=== PATIENT | female | born 2005 | race African-American/Black ===

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

== ENCOUNTER → 2023-05-14 | Outpatient (CLI) | payer MEDICAID ==
[2023-05-14 11:19] LABS: Basophils # (auto) 0 10 ^3/uL (0-0.2); Basophils % (auto) 0.2 % (0.0-2.0); Eosinophils # (auto) 0.1 10 ^3/uL (0-0.8); Eosinophils % (auto) 0.7 % (0.0-7.0); Hematocrit 35.9 % (36.0-46.0); Lymphocytes # (auto) 1.9 10 ^3/uL (0.4-5.4); Lymphocytes % (auto) 25.2 % (10.0-50.0); Mean Corpuscular Hemoglobin 28.6 pg (28.0-32.0); Mean Corpuscular Hgb Conc. 33.5 g/dL (32.0-36.0); Mean Corpuscular Volume 85.6 fL (80.0-100.0); Monocytes # (auto) 0.3 10 ^3/uL (0-1.3); Monocytes % (auto) 4.4 % (0.0-12.0); Neutrophils # (auto) 5.2 10 ^3/uL (1.6-8.6); Neutrophils % (auto) 69.5 % (37.0-80.0); Red Blood Cells 4.19 10^6/uL (4.0-5.20); Red Cell Distribution Width 14.8 % (11.8-14.3); White Blood Cell 7.4 10^3/uL (4.4-10.8)
[2023-05-14 13:10] LABS: Amphetamine Screen, Urine Neg (NEGATIVE)
[2023-05-14 13:11] LABS: Barbiturate Scree,Urine Neg (NEGATIVE); Benzodiazephine Screen, Urine Neg (NEGATIVE); Cannabinoid Screen, Urine Neg (NEGATIVE); Cocaine Screen, Urine Neg (NEGATIVE); Opiate Scree,Urine Neg (NEGATIVE); Phencyclidine Screen, Urine Neg (NEGATIVE)
[2023-05-15 06:07] LABS: RPR Non Reactive (Non Reactive)
[2023-05-15 09:06] LABS: Varicella Zoster IgG Antibody <135 index (Immune >165)
[2023-05-16 08:05] LABS: Chlamydia Trachomatis, NAA Negative (Negative); Neisseria gonorrhoeae, NAA Negative (Negative)
[2023-05-16 16:05] LABS: QuantiFERON-TB Gold Plus Negative (Negative)
== END | disposition home or self-care (01) ==
LOC: LAB 10:19
PROVIDERS: ATTEND Obstetrics & Gynecology
DX: Z34.00 Encounter for supervision of normal first pregnancy, unspecified trimester (principal); Z31.430 Encounter of female for testing for genetic disease carrier status for procreative management; Z36.0 Encounter for antenatal screening for chromosomal anomalies; N39.0 Urinary tract infection, site not specified; Z3A.00 Weeks of gestation of pregnancy not specified
CPT/HCPCS: 36415; 80307; 83036; 84702; 85025; 86592; 86703; 86762; 86787; 86850; 86900; 86901; 87086; 87340

== ENCOUNTER → 2023-08-06 | Outpatient (CLI) | payer MEDICAID ==
[2023-08-06 09:26] LABS: Alanine Aminotransferase 18 U/L (7-40); Albumin 4.1 g/dL (3.2-4.8); Alkaline Phosphatase 122 U/L (46-116); Anion Gap 10 (5-15); Aspartate Aminotransferase 13 U/L (13-40); Calcium 9.6 mg/dL (8.5-10.1); Carbon Dioxide 22 mmol/L (20-30); Chloride 107 mmol/L (98-107); Cholesterol 191 mg/dL (< 200); Glucose 114 mg/dL (74-106); HDL Cholesterol 67 mg/dL (40-59); LDL Cholesterol 104 mg/dL (< 100); Potassium 3.8 mmol/L (3.5-5.1); Sodium 139 mmol/L (136-145); Triglycerides 235 mg/dL (< 150)
[2023-08-06 09:27] LABS: Bilirubin, Total 0.4 mg/dL (0.2-1.0); Total Protein 6.8 g/dL (5.7-8.2)
[2023-08-06 09:30] LABS: BUN/Creatinine Ratio 9.4 (10.0-20.0); Blood Urea Nitrogen < 5 mg/dL (9-23)
== END | disposition home or self-care (01) ==
LOC: LAB 08:15
PROVIDERS: ATTEND Obstetrics & Gynecology
DX: Z34.00 Encounter for supervision of normal first pregnancy, unspecified trimester (principal); Z3A.00 Weeks of gestation of pregnancy not specified
CPT/HCPCS: 36415; 80053; 80061; 82951; 84436; 84443

== ENCOUNTER 2023-09-09 10:06 | Observation (INO) | payer MEDICAID | END 2023-09-09 11:55 | disposition home or self-care (01) | LOC: UNDOADMOB 10:06 → LDRP 10:06 | PROVIDERS: ADMIT Obstetrics & Gynecology; ATTEND Obstetrics & Gynecology | DX: O24.419 Gestational diabetes mellitus in pregnancy, unspecified control (principal); Z3A.36 36 weeks gestation of pregnancy; Z79.899 Other long term (current) drug therapy | CPT/HCPCS: 59025; 76818; 81002; 82948; 82962; 87086; G0378 ==

== ENCOUNTER 2023-09-16 10:00 | Observation (INO) | payer MEDICAID | END 2023-09-16 11:19 | disposition home or self-care (01) | LOC: LDRP 10:00 | PROVIDERS: ADMIT Obstetrics & Gynecology; ATTEND Obstetrics & Gynecology | DX: O24.419 Gestational diabetes mellitus in pregnancy, unspecified control (principal); Z3A.37 37 weeks gestation of pregnancy | CPT/HCPCS: 59025; 76818; 81002; 82948; 94760; G0378 ==

== ENCOUNTER 2023-09-23 10:00 | Observation (INO) | payer MEDICAID ==
[2023-09-23] MEDS ORDERED: PREN1TAB71 OR (10:15)
== END 2023-09-23 11:57 | disposition home or self-care (01) ==
LOC: LDRP 10:00 → UNDOADMOB 10:00 → LDRP 10:12 → UNDODISOB 11:57
PROVIDERS: ADMIT Obstetrics & Gynecology; ATTEND Obstetrics & Gynecology
DX: O24.419 Gestational diabetes mellitus in pregnancy, unspecified control (principal); O26.893 Other specified pregnancy related conditions, third trimester; R10.9 Unspecified abdominal pain; Z3A.38 38 weeks gestation of pregnancy
CPT/HCPCS: 59025; 76818; 81002; 82948; 94760; G0378

== ENCOUNTER 2023-09-27 12:51 | Observation (INO) | payer MEDICAID ==
[~2023-09-27 12:51] MED LIST: PREN1TAB71 OR
[2023-09-29] MEDS ORDERED: HYDR-4902 PO (17:07)
[2023-09-29] MEDS ORDERED: CEPH500T PO (17:07)
[2023-09-29] MEDS ORDERED: IBUP-1455 PO (17:07)
[2023-10-02] MEDS ORDERED: PREN1TAB71 PO (01:09)
[2023-10-02] MEDS ORDERED: DOCU240C23 PO (01:09)
[2023-10-02] MEDS ORDERED: FERR30CA PO (01:09)
== END 2023-09-27 14:33 | disposition home or self-care (01) ==
LOC: LDRP 12:51
PROVIDERS: ADMIT Obstetrics & Gynecology; ATTEND Obstetrics & Gynecology
DX: O62.9 Abnormality of forces of labor, unspecified (principal); O24.419 Gestational diabetes mellitus in pregnancy, unspecified control; O26.853 Spotting complicating pregnancy, third trimester; Z3A.39 39 weeks gestation of pregnancy
CPT/HCPCS: 59025; 81002; 82948; 82962

== ENCOUNTER 2023-10-18 16:04 | Emergency (ER) | payer MEDICAID ==
[~2023-10-18] VITALS: Ht 160 cm; Wt 118.2 kg
[~2023-10-18 16:04] MED LIST changes: +CEPH500T PO; +DOCU240C23 PO; +FERR30CA PO; +HYDR-4902 PO; +IBUP-1455 PO; -PREN1TAB71 OR; +PREN1TAB71 PO
[2023-10-18] MEDS ORDERED: ACET500T58 PO (17:35)
[2023-10-18] MEDS ORDERED: CEPH500C PO (17:35)
[2023-10-18] MEDS: CEPHALEXIN 250 MG CAP PO ONE (17:51)
[2023-10-18 17:56] VITALS: BP 128/57; PULSE 68; RESP 17; TEMP 98.4; O2SAT 96
== END 2023-10-18 17:58 | disposition home or self-care (01) ==
LOC: ER 16:04
DX: O90.0 Disruption of cesarean delivery wound (principal); Z79.1 Long term (current) use of non-steroidal anti-inflammatories (NSAID); Z79.899 Other long term (current) drug therapy

== ENCOUNTER → 2024-09-06 | Outpatient (CLI) | payer MEDICAID ==
[~2024-09-06] MED LIST changes: +ACET500T58 PO; +CEPH500C PO
[2024-09-06 14:37] LABS: Basophils # (auto) 0.1 10 ^3/uL (0-0.2); Basophils % (auto) 0.9 % (0.0-2.0); Eosinophils # (auto) 0.1 10 ^3/uL (0-0.8); Eosinophils % (auto) 1.2 % (0.0-7.0); Hematocrit 38.5 % (36.0-46.0); Hemoglobin 12.8 g/dL (12.2-16.2); Lymphocytes # (auto) 2.2 10 ^3/uL (0.4-5.4); Lymphocytes % (auto) 33.5 % (10.0-50.0); Mean Corpuscular Hemoglobin 28.7 pg (28.0-32.0); Mean Corpuscular Hgb Conc. 33.3 g/dL (32.0-36.0); Mean Corpuscular Volume 86.3 fL (80.0-100.0); Monocytes # (auto) 0.4 10 ^3/uL (0-1.3); Monocytes % (auto) 5.7 % (0.0-12.0); Neutrophils # (auto) 3.8 10 ^3/uL (1.6-8.6); Neutrophils % (auto) 58.7 % (37.0-80.0); Nucleated Red Blood Cells % 0.1 %; Platelet Count (auto) 229 10^3/uL (140-450); Red Blood Cells 4.46 10^6/uL (4.0-5.20); White Blood Cell 6.5 10^3/uL (4.4-10.8)
[2024-09-06 15:04] LABS: Alanine Aminotransferase 14 U/L (7-40); Albumin 4.2 g/dL (3.2-4.8); Anion Gap 9 (5-15); Aspartate Aminotransferase 14 U/L (13-40); Calcium 10.3 mg/dL (8.7-10.4); Carbon Dioxide 23 mmol/L (20-31); Chloride 104 mmol/L (98-107); Cholesterol 169 mg/dL (< 200); Glucose 76 mg/dL (74-106); LDL Cholesterol 88 mg/dL (< 100); Potassium 4.1 mmol/L (3.5-5.1); Sodium 136 mmol/L (136-145); Total Protein 7.2 g/dL (5.7-8.2); Triglycerides 134 mg/dL (< 150)
[2024-09-06 15:05] LABS: Bilirubin, Total 0.3 mg/dL (0.2-1.0); Blood Urea Nitrogen 6 mg/dL (9-23); HDL Cholesterol 71 mg/dL (40-59); Thyroid Stimulating Hormone 1.64 uIU/mL (0.55-4.78)
[2024-09-06 15:25] LABS: Alkaline Phosphatase 75 U/L (46-116)
[2024-09-06 15:43] LABS: Amphetamine Screen, Urine Neg (NEGATIVE); Barbiturate Scree,Urine Neg (NEGATIVE); Benzodiazephine Screen, Urine Neg (NEGATIVE); Cannabinoid Screen, Urine Neg (NEGATIVE); Cocaine Screen, Urine Neg (NEGATIVE); Opiate Scree,Urine Neg (NEGATIVE); Phencyclidine Screen, Urine Neg (NEGATIVE)
[2024-09-07 10:06] LABS: RPR Non Reactive (Non Reactive)
[2024-09-08 04:06] LABS: Chlamydia Trachomatis, NAA Negative (Negative); Neisseria gonorrhoeae, NAA Negative (Negative); Varicella Zoster IgG Antibody Non Reactive (Non Reactive)
[2024-09-08 16:06] LABS: QuantiFERON-TB Gold Plus Negative (Negative)
== END | disposition home or self-care (01) ==
LOC: LAB 13:36
PROVIDERS: ATTEND Obstetrics & Gynecology
DX: Z34.80 Encounter for supervision of other normal pregnancy, unspecified trimester (principal); Z36.0 Encounter for antenatal screening for chromosomal anomalies; Z31.430 Encounter of female for testing for genetic disease carrier status for procreative management; N39.0 Urinary tract infection, site not specified
CPT/HCPCS: 36415; 80053; 80061; 80307; 83036; 84439; 84443; 84702; 85025; 86592; 86703; 86762; 86787; 86850; 86900; 86901; 87086; 87340; 87902

== ENCOUNTER → 2024-12-14 | Outpatient (CLI) | payer MEDICAID ==
[2024-12-14 10:55] LABS: Basophils # (auto) 0.1 10 ^3/uL (0-0.2); Basophils % (auto) 0.7 % (0.0-2.0); Eosinophils # (auto) 0.1 10 ^3/uL (0-0.8); Hematocrit 36.2 % (36.0-46.0); Hemoglobin 12.1 g/dL (12.2-16.2); Lymphocytes % (auto) 27.4 % (10.0-50.0); Mean Corpuscular Hemoglobin 28.5 pg (28.0-32.0); Mean Corpuscular Hgb Conc. 33.5 g/dL (32.0-36.0); Monocytes # (auto) 0.3 10 ^3/uL (0-1.3); Monocytes % (auto) 3.9 % (0.0-12.0); Neutrophils # (auto) 4.9 10 ^3/uL (1.6-8.6); Platelet Count (auto) 315 10^3/uL (140-450); Red Blood Cells 4.26 10^6/uL (4.0-5.20); Red Cell Distribution Width 13.9 % (11.8-14.3); White Blood Cell 7.3 10^3/uL (4.4-10.8)
[2024-12-14 11:03] LABS: Alanine Aminotransferase 25 U/L (7-40); Albumin 4.4 g/dL (3.2-4.8); Alkaline Phosphatase 115 U/L (46-116); Anion Gap 9 (5-15); Aspartate Aminotransferase 15 U/L (13-40); Calcium 9.6 mg/dL (8.7-10.4); Carbon Dioxide 22 mmol/L (20-31); Chloride 106 mmol/L (98-107); Glucose 89 mg/dL (74-106); Sodium 137 mmol/L (136-145); Total Protein 7.4 g/dL (5.7-8.2)
[2024-12-14 11:04] LABS: Bilirubin, Total 0.4 mg/dL (0.2-1.0)
[2024-12-14 11:05] LABS: BUN/Creatinine Ratio 10.9 (10.0-20.0); Blood Urea Nitrogen < 5 mg/dL (9-23)
== END | disposition home or self-care (01) ==
LOC: LAB 10:19
DX: Z34.80 Encounter for supervision of other normal pregnancy, unspecified trimester (principal); Z3A.00 Weeks of gestation of pregnancy not specified
CPT/HCPCS: 36415; 80053; 82951; 83036; 85025

== ENCOUNTER 2025-02-04 14:55 | Observation (INO) | payer MEDICAID ==
[2025-02-04 15:54] LABS: Basophils # (auto) 0.1 10 ^3/uL (0-0.2); Basophils % (auto) 0.9 % (0.0-2.0); Eosinophils # (auto) 0 10 ^3/uL (0-0.8); Eosinophils % (auto) 0.5 % (0.0-7.0); Hematocrit 36.6 % (36.0-46.0); Hemoglobin 12.2 g/dL (12.2-16.2); Lymphocytes # (auto) 1.9 10 ^3/uL (0.4-5.4); Lymphocytes % (auto) 24.5 % (10.0-50.0); Mean Corpuscular Hemoglobin 27.3 pg (28.0-32.0); Mean Corpuscular Hgb Conc. 33.4 g/dL (32.0-36.0); Mean Corpuscular Volume 81.8 fL (80.0-100.0); Monocytes # (auto) 0.3 10 ^3/uL (0-1.3); Monocytes % (auto) 4.5 % (0.0-12.0); Neutrophils # (auto) 5.3 10 ^3/uL (1.6-8.6); Neutrophils % (auto) 69.6 % (37.0-80.0); Nucleated Red Blood Cells % 0.1 %; Platelet Count (auto) 343 10^3/uL (140-450); Red Blood Cells 4.47 10^6/uL (4.0-5.20); Red Cell Distribution Width 15.1 % (11.8-14.3); White Blood Cell 7.6 10^3/uL (4.4-10.8)
[2025-02-04 16:00] LABS: Alanine Aminotransferase 13 U/L (7-40); Albumin 3.9 g/dL (3.2-4.8); Anion Gap 14 (5-15); Aspartate Aminotransferase 14 U/L (<34); Bilirubin, Total 0.3 mg/dL (0.2-1.0); Calcium 8.9 mg/dL (8.7-10.4); Glucose 102 mg/dL (74-106); Potassium 3.6 mmol/L (3.5-5.1); Sodium 139 mmol/L (136-145); Total Protein 6.7 g/dL (5.7-8.2); Uric Acid 5.3 mg/dL (3.1-7.8)
[2025-02-04 16:01] LABS: Alkaline Phosphatase 137 U/L (46-116); Blood Urea Nitrogen 5 mg/dL (9-23); Carbon Dioxide 17 mmol/L (20-31); Chloride 108 mmol/L (98-107)
[2025-02-04 16:31] LABS: INR 0.92 (0.9-1.15); Prothrombin Time 9.8 sec (9.3-11.8)
--- NOTE | 2025-02-04 17:23 | DVHDS2 ---
Physician Discharge Progress N Final Diagnosis: Encounter for surveillance 3rd trim Secondary Diagnosis: Maternal morbid obesity Previous C/Section Operations or Procedures: Operations or Procedures NST Condition on Discharge: Stable Disposition: Home Discharge Instructions: Diet: Regular, See Comment Activity: No Restrictions, As Tolerated Follow Up/Referral: in 2 days for scheduled c/section delivery, sooner PRN Medications: NA Follow Up Care: Discharge Statement: "Patient was advised to return to the ER or call 911 if any headaches, dizziness, shortness of breath, chest pain, abdominal pain, bleeding, fevers, or worsening of medical condition. Patient was counseled about treatment plan, medications, possible side effects, patientverbalized understanding. All questions were answered to the best of my ability. This discharge took greater then 30 minutes in planning, reviewing documentation, counseling the patient, and discussing with other team members." Visit Coding OBGYN Date of Service: Feb 04, 2025 Billing Provider: DURGA COOPER DO CANTEEN ATTENDANT Common Visit Codes: 85264-FTN/OBS SAME DATE (MOD) CANTEEN ATTENDANT Procedure Codes: 39619-71- NON-STRESS TEST DURGA COOPER DO Feb 04, 2025 17:23
== END 2025-02-04 17:00 | disposition home or self-care (01) ==
LOC: LDRP 14:55 → UNDOADMOB 14:55 → LDRP 15:12
PROVIDERS: ADMIT Obstetrics & Gynecology; ATTEND Obstetrics & Gynecology
DX: O99.210 Obesity complicating pregnancy, unspecified trimester (principal); E66.01 Morbid (severe) obesity due to excess calories; R79.1 Abnormal coagulation profile; Z98.891 History of uterine scar from previous surgery; Z3A.38 38 weeks gestation of pregnancy; Z79.899 Other long term (current) drug therapy
CPT/HCPCS: 36415; 59025; 80053; 81002; 84550; 85025; 85610; 85730; 86703; 86762; 86780; 86803; 87340; G0378

== ENCOUNTER 2025-02-06 04:37 | Inpatient (IN) | payer MEDICAID ==
[2025-02-06] VITALS (16 sets, daily range): BP systolic 112–140; BP diastolic 56–81; PULSE 89–122; RESP 16–18; TEMP 98–98.6; O2SAT 94–100
[~2025-02-06] VITALS: Ht 160 cm; Wt 143.3 kg
[2025-02-06 05:46] LABS: Urine Bacteria None Seen /hpf (None Seen)
[2025-02-06 05:57] LABS: Urine Blood TRACE /uL (Negative); Urine Clarity Turbid (Clear); Urine Color Light-Yellow (Yellow); Urine Mucus FEW (None Seen); Urine Protein, UAD Negative (Negative); Urine Specific Gravity 1.018 (1.001-1.035); Urine Squamous Epithelial Cell FEW /hpf (<5); Urine Urobilinogen Normal (Negative); Urine WBC 8 /HPF (0-5); Urine pH 6.5 (5.0-9.0)
[2025-02-06 06:32] LABS: Amphetamine Screen, Urine Neg (NEGATIVE); Barbiturate Scree,Urine Neg (NEGATIVE); Benzodiazephine Screen, Urine Neg (NEGATIVE); Cannabinoid Screen, Urine Neg (NEGATIVE); Cocaine Screen, Urine Neg (NEGATIVE); Opiate Scree,Urine Neg (NEGATIVE); Phencyclidine Screen, Urine Neg (NEGATIVE)
--- NOTE | 2025-02-06 06:54 | DVHHP2 ---
OB CC & HPI Date Date of Admission: Feb 06, 2025 Patient Identification: : 2 Para: 1 EDC: Feb 14, 2025 EGA: 38.6 Chief Complaints: Reason for admission: section Indication for : desires repeat History of Present Complaints 20y IUP @ 38.6 wk by 6 wk US EDC 02/14/25 Admitted for repeat C/S due to Morbid obesity BMI 56, Polyhydramnios, and contractions Mild to moderate pain. Denies PROM. Normal movements has otherwise been uncomplicated. Past Medical History Cardiac: No pertinent Hx Pulmonary: No pertinent Hx Central Nervous System: No pertinent Hx GI: No pertinent Hx Hemotology/Oncology: No pertinent Hx Hepatobiliary: No pertinent Hx Psychiatric: No pertinent Hx Musculoskeletal: No pertinent Hx Rheumotologic: No pertinent Hx Infectious Disease: No peritnent Hx ENT: No pertinent Hx Renal/: No pertinent Hx Endocrine: No pertinent Hx Dermatology: No pertinent Hx Past Surgical History: OB History OB History Care: Good Care Ultrasounds: Normal mid trimester US Obstetrical Complications: None Medical Complications: None Allergies: Coded Allergies: NO KNOWN ALLERGIES (Unverified , 09/28/23) Home Meds Active Scripts Acetaminophen (Acetaminophen) 500 Mg Tab, 500 MG PO Q4HP PRN, #20 TAB Prov:PUJA RODRIGUEZ PAC 10/18/23 Cephalexin Monohydrate (Cephalexin) 500 Mg Cap, 1 CAP PO QID for 10 Days, #40 CAP Prov:PUJA RODRIGUEZ PAC 10/18/23 Ferric Maltol (Accrufer) 30 Mg Cap, 30 MG PO BID for 30 Days, #60 CAP 3 Refills take twice a day on an empty stomach, either 1 hour before or 2 hours after a meal Prov:MEE NARANJOM 10/02/23 Docusate Calcium (Stool Softener) 240 Mg Cap, 240 MG PO DAILY PRN for 30 Days, #30 CAP 3 Refills Prov:MEE NARANJO CNM 10/02/23 Vit W/ Ferrous Fumara (PNV PLUS MULTIVI) Plus Tab, 1 TAB PO DAILY for 90 Days, #90 TAB 3 Refills Prov:MEE NARANJO CNM 10/02/23 Cephalexin Monohydrate (Cephalexin) 500 Mg Tab, 1 TAB PO QID for 5 Days, #20 TAB Prov:MALIHADURGA DRISCOLL DO 09/29/23 Ibuprofen Micronized (Ibuprofen) 800 Mg Tab, 800 MG PO Q8HPRN PRN, #30 TAB Prov:DURGA COOPER DO 09/29/23 Hydrocodone-Acetaminophen (Hydrocodone Bitartrate/AC 5-325 mg) 1 Tab Tab, 1 TAB PO Q6HPRN PRN for 5 Days, #20 TAB Prov:ALLISONDURGA Sandip DO 09/29/23 Current Medications Current Medications Medications (Trade) Dose Ordered Sig/August Route PRN Reason Start Time Stop Time Status Last Admin Lactated Ringer's 1,000 ml @ 125 mls/hr Q8H IV 02/06/25 05:00 Family & Social History Family/Social History Blood Type: O+ Rubella: not immune RPR/VDRL: Negative GBS Status: Unknown HBsAG: Negative Review of Systems Constitutional: No symptom reported Ears, Nose, & Throat: No symptom reported Eyes: No symptom reported Pulmonary/Respiratory: No symptom reported Cardiovascular: No symptom reported Gastrointestinal: No symptom reported Genitourinary: No symptom reported Musculoskeletal: No symptom reported Skin: No symptom reported Psychiatric: No symptom reported Endocrine: No symptom reported Hemotologic/Lymphatic: No symptom reported OB Admission Exam Physical Exam HEENT: NCAT Heart: Rhythm Normal Lungs: Clear Abdomen: Gravid Extremities: Normal Reflexes: Normal Heart Rate: 150's Accelerations: Accelerations Present Decelerations: No Decelerations Short Term Variability: Present Water Filtration Technician Variability: Average (6-25) Contractions on Admission: < 5 Minutes Apart Intensity: Moderate OB Plan Plan Admitting Diagnosis: Term IUP 38.6 wk, Previous C/S desires repeat Contractions/ Polyhydramnios/ Morbid obesity Plan: Section Other Plan: Informed consent obtained. R/B/A discussed w/ patient Risks of infection, wound separation, injury to bowel/bladder, adjacent organs all d/w pt. Visit Coding OBGYN Date of Service: Feb 06, 2025 Billing Provider: DURGA COOPER DO WARDROBE COORDINATOR Common Visit Codes: [id number] INP/OBS CARE (HIGH) DURGA COOPER DO Feb 06, 2025 06:54
[2025-02-06] MEDS ORDERED: MORPHINE SULF PF 5 MG/10 ML VIAL ONE (07:02)
[2025-02-06] MEDS ORDERED: PHENYLEPHRINE HCL 10 MG/ML VL ONE (07:03)
[2025-02-06] MEDS ORDERED: ePHEDrine SULFATE 50 MG/ML AMP ONE (07:03)
[2025-02-06] MEDS ORDERED: oxyTOCIN 10 UNIT/ML 10ML VIAL ONE (07:03)
[2025-02-06] MEDS ORDERED: MIDAZOLAM HCL 2MG/2ML 2ml VIAL (1mg/ml) ONE (08:14)
[2025-02-06] MEDS: SODIUM CITR/CITRIC ACID ORAL SOLN 30 ML PO SCH (08:57)
[2025-02-06] MEDS: ceFAZolin 1GM/50ML 50 ML IV ONE ×2 (08:57→16:48)
[2025-02-06] MEDS ORDERED: ONDANSETRON HCL 4 MG/2 ML VIAL IV PRN ×2 (09:00→09:15)
[2025-02-06] MEDS ORDERED: MEPERIDINE HCL (25 MG/ML) 1ML VIAL IV PRN (09:00)
[2025-02-06] MEDS ORDERED: NALOXONE HCL 0.4 MG/ML VIAL IV PRN (09:00)
[2025-02-06] MEDS ORDERED: DexAMETHasone SOD PHOS 10MG/1ML VIAL INJ IV PRN (09:00)
[2025-02-06] MEDS ORDERED: HYDROmorphone HCL 2 MG/ML VL/or syr IV PRN ×3 (09:00→09:15)
[2025-02-06] MEDS ORDERED: ACETAMINOPHEN IV 1000 MG/100ML (10MG/ML) IV PRN (09:00)
[2025-02-06] MEDS ORDERED: NALBUPHINE HCL 10 MG/1ml INJECTION SUBCUT ONE (09:00)
--- NOTE | 2025-02-06 09:08 | DVHOP2 ---
Operative Report - 2 Report Details Date: 02/06/25 Preop Diagnosis: Term IUP @38.6 wk, early labor Polyhydramnios with Contractions Previous C/S x 1, desires repeat Morbid maternal obesity BMI 56 Postop Diagnosis: Same Surgeon: Demond Cooper DO Loan Operations Specialist: Leeanna Lindo Anesthesiologist: Nat Dobbs DO Anesthesia: Regional Consent: The patient was informed of the risks and benefits of the procedure. These include but are not limited to complications of anesthesia, postoperative infection, damage to blood vessels, nerves and adjacent organs such as bowel/bl adder, deep venous thrombosis, pulmonary embolism and possible . Complications: None Estimated Blood Loss: 750 mL Findings: Findings: Viable [male/female] infant in cephalic presentation. Apgars and . Clear amniotic fluid. Intact placenta, three vessel cord. Normal uterus, fallopian tubes and ovaries bilaterally. Indications for Surgery: Repeat in early labor Name of Procedure Performed Repeat low transv C/Section via pfannensteil skin incision Procedure Details Procedure Details: After informed consent was obtained, the patient was taken to the operating room where her spinal was found to be adequate. The patient was placed in the supine position with a slight leftward tilt. She was sterilely prepped and draped in the usual sterile fashion. A Pfannenstiel skin incision was made through the prior scar with the scalpel. The incision was carried down sharply to the underlying layer of fascia and peritoneum. Entry into the peritoneal cavity was performed bluntly. The peritoneal incision was extended superiorly and inferiorly with good visualization of the bladder. The Leonidas O retractor was then placed into the incision. The vesicouterine peritoneum was dissected off the lower uterine segment and a bladder flap was created digitally. Using a second scalpel, the lower uterine segment was incised in a low transverse fashion and the incision extended laterally using bandage scissors. The amniotic membranes were ruptured. The fluid was clear. The head was delivered atraumatically followed by the rest of the body. After delivery of the infant, the nose and mouth were suctioned. The cord was clamped and cut after 60 seconds and the baby handed off to waiting pediatric team. Cord blood was obtained. The placenta was spontaneously delivered. The uterus was exteriorized and cleared of all clots and debris using moist laparotomy sponges. The uterine incision was repaired with Stratafix Spiral 0- PDS in continuous running fashion in two layers. Excellent tissue approximation and hemostasis was obtained.The uterus was returned to the abdomen The cul-de-sac and pericolic gutters were cleared of all clots and debris. We irrigated with sterile water. There were omental adhesions to the anterior abdominal wall that were lysed with electrocautery. At this point, all instrumentation was removed from the patient's abdomen. The lap counts were correct x 2. We proceeded to close the peritoneum using 2-0 vicryl. Next, the rectus fascia was closed using #1 double looped PDS in continuous running fashion. Excellent tissue approximation was obtained. The subcutaneous tissue was irrigated, bleeding points controlled with cautery. The subcutaneous tissue was closed with 2-0 plain gut and the skin was closed transversely with nathan. A sterile dressing was then placed over the incision. INTRAOPERATIVE COMPLICATIONS: None. ESTIMATED BLOOD LOSS: 750 mL POSTOP CONDITION: Stable. SPECIMENS: Cord blood and placenta. MEDICATIONS: Patient received 3gm IV Ancef prior to skin incision Condition Stable Disposition Still a Patient Visit Coding OBGYN Date of Service: Feb 06, 2025 Billing Provider: DEMOND COOPER DO HAND TIRE TRIMMER Common Visit Codes: PROCEDURE ONLY HAND TIRE TRIMMER Procedure Codes: [id number] OB CARE, DEMOND AGUERO DO Feb 06, 2025 09:08
[2025-02-06] MEDS: ONDANSETRON HCL 4 MG/2 ML VIAL IV ONE (09:10)
[2025-02-06] MEDS: GUM (CHEWING) 1 GUM CHEW CHEW ONE (09:15)
[2025-02-06] MEDS ORDERED: ceFAZolin 1GM/50ML 50 ML IV SCH (09:15)
[2025-02-06] MEDS ORDERED: IBU600T PO (09:21)
[2025-02-06] MEDS ORDERED: HYDR-4902 PO (09:21)
[2025-02-06] MEDS: LACTATED RINGER'S 1,000 ML IV SCH (09:59)
[2025-02-06] MEDS: LACTATED RINGER'S 1,000 ML IV ONE (09:59)
[2025-02-06] MEDS: ceFAZolin 2 GM/D5W50ml 50 ML IV ONE (10:00)
[2025-02-06] MEDS: ceFAZolin 1GM/50ML 50 ML IV SCH (16:51)
[2025-02-06] MEDS: ACETAMINOPHEN IV 1000 MG/100ML (10MG/ML) IV PRN (21:31)
[2025-02-06] MEDS: DOCUSATE SOD 100 MG CAP PO SCH (22:00)
[2025-02-06] MEDS: diphenhdrAMINE HCL 50 MG/1 ML VL IV PRN (22:33)
[2025-02-07] VITALS (9 sets, daily range): BP systolic 111–134; BP diastolic 52–82; PULSE 91–128; RESP 16–18; TEMP 98.1–98.8; O2SAT 98–100
[2025-02-07] MEDS: KETOROLAC TROMETH 30 MG/ML 1ML VIAL IV PRN (04:09)
[2025-02-07] MEDS ORDERED: HYDROcodone-ACET 5/325MG TAB PO PRN ×2 (06:00→09:15)
--- NOTE | 2025-02-07 06:39 | DVHPN2 ---
Progress Note Date Seen: Feb 07, 2025 Subjective POD#1 s/p Repeat C/S at Term S: Doing well. pain controlled. Lochia mild. Denies N/V or fever. + Flatus vital signs Vital Sign Date Time Temp Pulse Resp B/P (MAP) Pulse Ox O2 Delivery O2 Flow Rate FiO2 02/07/25 06:25 98.3 106 16 116/52 (73) 99 98.3 02/06/25 19:00 Room Air 02/06/25 08:54 98 Total Intake and Output 02/06/25 02/06/25 02/07/25 15:00 23:00 07:00 Output Total 300 ml 580 ml 400 ml Balance -300 ml -580 ml -400 ml medications Current Medications Medications Dose Ordered Sig/August Route Start Time Stop Time Status Last Admin Dose Admin Lactated Ringer's 1,000 ml @ 125 mls/hr Q8H IV 02/06/25 05:00 02/06/25 09:59 125 MLS/HR Citric Acid/ Sodium Citrate 30 ml PC PO 02/06/25 07:15 02/06/25 08:57 30 ML Diphenhydramine HCl 25 mg Q4HP PRN IV 02/06/25 09:00 02/06/25 22:33 25 MG Ondansetron HCl 4 mg Q4HP PRN IV 02/06/25 09:15 Acetaminophen 1,000 mg [id number] PRN IV 02/06/25 09:15 02/07/25 09:14 02/06/25 21:31 1,000 MG Docusate Sodium 200 mg HS PO 02/06/25 22:00 Dimethicone 80 mg QID PRN PO 02/06/25 09:15 Ibuprofen 600 mg Q6HR PO 02/07/25 06:00 Acetaminophen/ Hydrocodone Bitart 2 tab Q4HPRN PRN PO 02/07/25 06:00 Cefazolin Sodium 50 ml @ 100 mls/hr Q8H IV 02/06/25 16:00 02/07/25 08:29 02/07/25 00:23 100 MLS/HR Objective O: AFVSS Chest: heart and lung sounds normal. Abd soft, non-tender, fundus firm, BS, no rebound or guarding, Incision - dressing and incision clean, dry, intact Ext Neg Homans, Non-tender, edema Lochia - minimal Labs Pending Assessment/Plan POD#1 s/p R C/Sect doing well - Continue supportive care - Check CBC results today - Ambulate/Pain control - Possible D/C tomorrow. D/C nathan in 1 week in OB clinic Plan discussed with: Patient Visit Coding OBGYN Date of Service: Feb 07, 2025 Billing Provider: DURGA COOPER DO INSIDE B2B SALES Common Visit Codes: [id number] INP/OBS CARE(HIGH) DURGA COOPER DO Feb 07, 2025 06:39
[2025-02-07] MEDS ORDERED: CEPH500C PO (06:48)
[2025-02-07] MEDS: IBUPROFEN 600 MG TAB PO SCH (08:54)
[2025-02-07 09:15] LABS: Basophils # (auto) 0 10 ^3/uL (0-0.2); Basophils % (auto) 0.4 % (0.0-2.0); Eosinophils # (auto) 0 10 ^3/uL (0-0.8); Eosinophils % (auto) 0.2 % (0.0-7.0); Lymphocytes # (auto) 1.5 10 ^3/uL (0.4-5.4); Monocytes # (auto) 0.4 10 ^3/uL (0-1.3)
[2025-02-07 09:18] LABS: Hematocrit 29.2 % (36.0-46.0); Hemoglobin 9.8 g/dL (12.2-16.2); Lymphocytes % (auto) 15.8 % (10.0-50.0); Mean Corpuscular Hemoglobin 27.5 pg (28.0-32.0); Mean Corpuscular Hgb Conc. 33.4 g/dL (32.0-36.0); Mean Corpuscular Volume 82.2 fL (80.0-100.0); Monocytes % (auto) 4.5 % (0.0-12.0); Neutrophils # (auto) 7.5 10 ^3/uL (1.6-8.6); Neutrophils % (auto) 79.1 % (37.0-80.0); Platelet Count (auto) 244 10^3/uL (140-450); Red Blood Cells 3.55 10^6/uL (4.0-5.20); Red Cell Distribution Width 15.1 % (11.8-14.3); White Blood Cell 9.5 10^3/uL (4.4-10.8)
[2025-02-07] MEDS: HYDROcodone-ACET 5/325MG TAB PO PRN (14:34)
[2025-02-07] MEDS: IBUPROFEN 600 MG TAB PO PRN (22:39)
[2025-02-07] MEDS: SIMETHICONE 80 MG CHEWABLE TABLET PO PRN (22:40)
[2025-02-08 03:30] VITALS: BP 115/57; PULSE 118; RESP 16; TEMP 98.4; O2SAT 100
--- NOTE | 2025-02-08 06:26 | DVHDS2 ---
Discharge Summary Date of Admission Feb 06, 2025 at 04:37 Date of Discharge: Feb 08, 2025 Admitting Diagnosis status post c/s Wounds: C/D/I Labs/Diagnostic Data: Laboratory Results Test 02/07/25 08:30 02/06/25 05:35 White Blood Count 9.5 10^3/uL (4.4-10.8) Red Blood Count 3.55 10^6/uL (4.0-5.20) Hemoglobin 9.8 g/dL (12.2-16.2) Hematocrit 29.2 % (36.0-46.0) Mean Corpuscular Volume 82.2 fL (80.0-100.0) Mean Corpuscular Hemoglobin 27.5 pg (28.0-32.0) Mean Corpuscular Hemoglobin Concent 33.4 g/dL (32.0-36.0) Red Cell Distribution Width 15.1 % (11.8-14.3) Platelet Count 244 10^3/uL (140-450) Mean Platelet Volume 9.5 fL (6.9-10.8) Neutrophils (%) (Auto) 79.1 % (37.0-80.0) Lymphocytes (%) (Auto) 15.8 % (10.0-50.0) Monocytes (%) (Auto) 4.5 % (0.0-12.0) Eosinophils (%) (Auto) 0.2 % (0.0-7.0) Basophils (%) (Auto) 0.4 % (0.0-2.0) Neutrophils # (Auto) 7.5 10 ^3/uL (1.6-8.6) Lymphocytes # (Auto) 1.5 10 ^3/uL (0.4-5.4) Monocytes # (Auto) 0.4 10 ^3/uL (0-1.3) Eosinophils # (Auto) 0 10 ^3/uL (0-0.8) Basophils # (Auto) 0 10 ^3/uL (0-0.2) Nucleated Red Blood Cells 0.0 % Urine Color Light-yellow (Yellow) Urine Clarity Turbid (Clear) Urine pH 6.5 (5.0-9.0) Urine Specific [place] 1.018 (1.001-1.035) Urine Protein Negative (Negative) Urine Ketones Negative (Negative) Urine Blood Trace /uL (Negative) Urine Nitrite Negative (Negative) Urine Bilirubin Negative (Negative) Urine Urobilinogen Normal mg/dL (Negative) Urine Leukocyte Esterase 1+ /uL (Negative) Urine RBC 11 /hpf (0 - 4) Urine Microscopic WBC 8 /HPF (0-5) Urine Squamous Epithelial Cells Few /hpf (<5) Urine Calcium Oxalate Crystals Mod (None Seen) Urine Bacteria None seen /hpf (None Seen) Urine Mucus Few (None Seen) Urine Glucose Normal mg/dL (Normal) Urine Opiates Screen Neg (NEGATIVE) Urine Fentanyl Screen Neg (NEGATIVE) Urine Barbiturates Screen Neg (NEGATIVE) Urine Phencyclidine Screen Neg (NEGATIVE) Urine Amphetamines Screen Neg (NEGATIVE) Urine Benzodiazepines Screen Neg (NEGATIVE) Urine Cocaine Screen Neg (NEGATIVE) Urine Cannabinoids Screen Neg (NEGATIVE) Other Laboratory Tests 02/07/25 08:30 Brief Hx & Hospital Course: s/p Operations or Procedures section Condition at Discharge: Good Final Diagnosis/Problems List Same Discharge Disposition: Home Discharge Statement: "Patient was advised to return to the ER or call 911 if any headaches, dizziness, shortness of breath, chest pain, abdominal pain, bleeding, fevers, or worsening of medical condition. Patient was counseled about treatment plan, medications, possible side effects, patientverbalized understanding. All questions were answered to the best of my ability. This discharge took greater then 30 minutes in planning, reviewing documentation, counseling the patient, and discussing with other team members." ASSESSMENT ASSESSMENT Assessment Same Visit Coding OBGYN Date of Service: Feb 08, 2025 Billing Provider: ALVERTO PAK DO SERVICE OR WORK DISPATCHER CHIEF Common Visit Codes: PROCEDURE ONLY SERVICE OR WORK DISPATCHER CHIEF Procedure Codes: [id number] OB CARE, ALVERTO MEJIA DO Feb 08, 2025 06:25
[2025-02-08 06:39] VITALS: BP 123/57; PULSE 116; RESP 20; TEMP 97.9; O2SAT 95
[2025-02-08 10:30] VITALS: BP 148/88; PULSE 126; RESP 18; TEMP 97.9; O2SAT 95
[2025-02-08] MEDS: MEASLES, MUMPS & RUBELLA VAC(MMRII) 0.5ML SC ONE (10:34)
[2025-02-08 11:37] VITALS: BP 135/75
== END 2025-02-08 12:03 | disposition home or self-care (01) | DRG 540 ==
LOC: LDRP 04:37 → UNDOADMIN 04:37 → LDRP 17:55
PROVIDERS: ADMIT Obstetrics & Gynecology; ATTEND Obstetrics & Gynecology
PROC: 10D00Z1 Extraction of Products of Conception, Low, Open Approach (ICD-10-PCS; principal; 2025-02-06 07:11)
DX: O40.3XX0 Polyhydramnios, third trimester, not applicable or unspecified (principal); O99.214 Obesity complicating childbirth; E66.01 Morbid (severe) obesity due to excess calories; Z37.0 Single live birth; Z3A.38 38 weeks gestation of pregnancy; K66.0 Peritoneal adhesions (postprocedural) (postinfection); O99.892 Other specified diseases and conditions complicating childbirth; O34.219 Maternal care for unspecified type scar from previous cesarean delivery; Z23 Encounter for immunization
CPT/HCPCS: 36415; 59025; 80307; 81001; 85025; 86850; 86900; 86901; 94760; 94762; 96360; 96361; 96365; 96366; 96372; 96374; G0378; J0131; J1885; J2250; J2405; J2590